=== PATIENT | female | born 1965 | race American Indian/Alaskan Native ===

== ENCOUNTER 2017-08-02 08:34 | Day surgery (SDC) | payer OTHER ==
[2017-06-21 23:04] VITALS: BMI 34.7
[2017-08-02] MEDS ORDERED: Lactated Ringer's 1,000 ML IV ONE (09:11)
[2017-08-02 09:27] VITALS: O2SAT 100
[2017-08-02] MEDS ORDERED: Propofol 10 mg/ml Inj (20 ML) ONE (10:08)
[2017-08-02] MEDS ORDERED: Midazolam 2 MG/2 ML VIAL ONE (10:08)
[2017-08-02] MEDS ORDERED: Lidocaine 2% MPF (5 ml) Inj ONE (10:09)
[2017-08-02 10:45] VITALS: PULSE 89
[2017-08-02 10:46] VITALS: BP 104/73; RESP 16; TEMP 98
== END 2017-08-02 11:00 | disposition home or self-care (01) ==
LOC: H.ENDO 08:34
PROVIDERS: ATTEND Internal Medicine Gastroenterology
DX: K21.9 Gastro-esophageal reflux disease without esophagitis (principal); I10 Essential (primary) hypertension; K44.9 Diaphragmatic hernia without obstruction or gangrene; E66.9 Obesity, unspecified
CPT/HCPCS: 43239; 88305; J2250; J2704; J7120

== ENCOUNTER 2017-08-16 08:40 | Day surgery (SDC) | payer OTHER ==
[2017-06-21 23:04] VITALS: BMI 34.7
[2017-08-16] MEDS ORDERED: Lactated Ringer's 1,000 ML IV ONE (09:05)
[2017-08-16 09:28] VITALS: TEMP 98.1
[2017-08-16] MEDS ORDERED: Midazolam 2 MG/2 ML VIAL ONE (10:35)
[2017-08-16] MEDS ORDERED: Propofol 10 mg/ml Inj (20 ML) ONE (10:35)
[2017-08-16 11:37] VITALS: BP 91/54; PULSE 70; RESP 15; O2SAT 99
== END 2017-08-16 11:37 | disposition home or self-care (01) ==
LOC: H.ENDO 08:40
PROVIDERS: ATTEND Internal Medicine Gastroenterology
DX: Z12.11 Encounter for screening for malignant neoplasm of colon (principal); I25.10 Atherosclerotic heart disease of native coronary artery without angina pectoris; I10 Essential (primary) hypertension; K21.9 Gastro-esophageal reflux disease without esophagitis; K57.30 Diverticulosis of large intestine without perforation or abscess without bleeding
CPT/HCPCS: G0121; J2250; J2704; J7120